=== PATIENT | female | born 1995 | race Caucasian/White ===

== ENCOUNTER 2017-04-02 14:31 | Emergency (ER) | payer OTHER ==
[2017-04-02 14:49] VITALS: BP 140/82; PULSE 84; RESP 20; TEMP 98.2
--- NOTE | 2017-04-02 15:53 | ED ---
Female Urogenital HPI - General Chief complaint: Urogenital Stated complaint: Test Time Seen by Provider: 04/02/17 15:18 Source: patient, RN notes reviewed Mode of arrival: ambulatory Limitations: no limitations - History of Present Illness Initial comments: 21-year-old female presents to the ER concerned with . She states that she has missed her last menstrual cycle which should have been the last week of February. She states that she did take a home test and she did notice a faint line on the stick but wanted confirmation. She states that this time she does not have a primary care physician. She states that she is not having any abdominal pain, nausea, vomiting, diarrhea, vaginal bleeding, discharge, urinary frequency, urgency, burning. She also states that she is in a monogamous sexual relationship that they do not use protection. Last Menstrual Period: 02/25/17 - Related Data Home Medications Medication Instructions Recorded Confirmed No Known Home Medications [No 04/02/17 04/02/17 Known Home Medications] Allergies Allergy/AdvReac Type Severity Reaction Status Date / Time No Known Allergies Allergy Verified 04/02/17 14:49 Review of Systems ROS Statement: Those systems with pertinent positive or pertinent negative responses have been documented in the HPI. ROS Other: All systems not noted in ROS Statement are negative. Past Medical History Past Medical History: No Reported History History of Any Multi-Drug Resistant Organisms: None Reported Past Surgical History: No Surgical Hx Reported Past Anesthesia/Blood Transfusion Reactions: No Reported Reaction Past Psychological History: Anxiety, Bipolar, Depression Smoking Status: Never smoker Past Alcohol Use History: None Reported Past Drug Use History: None Reported - Past Family History Father Family Medical History: Diabetes Mellitus General Exam Limitations: no limitations General appearance: alert, in no apparent distress Head exam: Present: atraumatic, normocephalic Eye exam: Present: normal appearance, PERRL, EOMI Pupils: Present: normal accommodation Respiratory exam: Present: normal lung sounds bilaterally Cardiovascular Exam: Present: regular rate, normal rhythm GI/Abdominal exam: Present: soft, other (Nondistended no tenderness.) Neurological exam: Present: alert, oriented X3, CN II-XII intact, normal gait Psychiatric exam: Present: normal affect, normal mood Skin exam: Present: warm, dry, intact Course Vital Signs 04/02/17 14:46 Temperature 98.2 F Pulse Rate 84 Respiratory 20 Rate Blood Pressure 140/82 O2 Sat by Pulse 98 Oximetry Medical Decision Making - Medical Decision Making To visual field presented to the ER with a faint positive home tests she has missed her last period by approximately 10-14 days. She does state that it has been a little irregular in either direction. She was requesting a exam through the ER for her . There was extensive counseling with the patient and her partner on emergency situations, establishing primary care physician for further issues of this nature. He was discussed with her that do not recommend a blood test at this time we do recommend urine for screen since she has no other issues or complaints. The urine did come back negative this was communicated to the patient and her partner and he recommended follow with primary care this week to [facility]. Patient was agreeable with this and is to return to the ER if any worsening or new symptoms or concerns. - Lab Data Lab Results 04/02/17 Range/Units 15:27 Urine HCG, Qual Not Detected (Not Detectd) Disposition Clinical Impression: Amenorrhea Disposition: HOME SELF-CARE Condition: Good Instructions: Normal Exam (ED) Additional Instructions: To return to the ER with any new symptoms or concerns. Encouraged to establish a primary care physician for proper follow-up. Referrals: Kris Schmidt MD [STAFF PHYSICIAN] - 1-2 days Time of Disposition: 16:17
== END 2017-04-02 16:22 | disposition home or self-care (01) ==
LOC: EC 14:31
DX: N91.2 Amenorrhea, unspecified (principal); Z32.02 Encounter for pregnancy test, result negative
CPT/HCPCS: 81025; 99281

== ENCOUNTER 2017-04-26 12:03 | Emergency (ER) | payer OTHER ==
[2017-04-26 12:34] VITALS: BP 119/69; PULSE 99; RESP 18; TEMP 98.9
--- NOTE | 2017-04-26 12:41 | ED ---
URI HPI - General Chief Complaint: Upper Respiratory Infection Stated Complaint: Cough Time Seen by Provider: 04/26/17 12:33 Source: patient, RN notes reviewed, old records reviewed Mode of arrival: ambulatory Limitations: no limitations - History of Present Illness Initial Comments: This is a 21-year-old female presents emergency Department with chief complaint of cough and sore throat for the past week. Patient reports that she is coughing the point where she fell she was going to vomit. Patient denies any abdominal pain. She is a nonsmoker. Patient states that when she coughs she does have productive yellow phlegm. Patient states that she has some sinus drainage which is causing her sore throat. Denies any history of sick contacts. Denies any fever. Patient reports that she is coughs so much that she's lost her voice. Patient denies any recent fever, chills, shortness of breath, chest pain, back pain, abdominal pain, nausea vomiting, numbness or tingling, dysuria or hematuria, constipation or diarrhea, headaches or visual changes, or any other current symptoms - Related Data Previous Rx's Medication Instructions Recorded Azithromycin [Zithromax Z-pack] 250 mg PO DIRECTED #6 tab 04/26/17 Benzonatate [Tessalon Perles] 100 mg PO TID PRN #15 capsule 04/26/17 methylPREDNISolone Dose Pack 4 mg PO DIRECTED #21 package 04/26/17 [Medrol Dose Pack] Allergies Allergy/AdvReac Type Severity Reaction Status Date / Time No Known Allergies Allergy Verified 04/26/17 12:33 Review of Systems ROS Statement: Those systems with pertinent positive or pertinent negative responses have been documented in the HPI. ROS Other: All systems not noted in ROS Statement are negative. Past Medical History Past Medical History: No Reported History History of Any Multi-Drug Resistant Organisms: None Reported Past Surgical History: No Surgical Hx Reported Past Anesthesia/Blood Transfusion Reactions: No Reported Reaction Past Psychological History: Anxiety, Bipolar, Depression Smoking Status: Never smoker Past Alcohol Use History: None Reported Past Drug Use History: None Reported - Past Family History Father Family Medical History: Diabetes Mellitus General Exam - General Exam Comments Initial Comments: 19-year-old female. No acute distress. Limitations: no limitations General appearance: alert, in no apparent distress Head exam: Present: atraumatic, normocephalic, normal inspection Eye exam: Present: normal appearance, PERRL, EOMI. Absent: scleral icterus, conjunctival injection, periorbital swelling ENT exam: Present: normal exam, normal oropharynx, mucous membranes moist, other (Patient has a hoarse voice.) Neck exam: Present: normal inspection. Absent: tenderness, meningismus, lymphadenopathy Respiratory exam: Present: normal lung sounds bilaterally. Absent: respiratory distress, wheezes, rales, rhonchi, stridor Cardiovascular Exam: Present: regular rate, normal rhythm, normal heart sounds. Absent: systolic murmur, diastolic murmur, rubs, gallop, clicks GI/Abdominal exam: Present: soft, normal bowel sounds. Absent: distended, tenderness, guarding, rebound, rigid Extremities exam: Present: normal inspection, full ROM, normal capillary refill. Absent: tenderness, pedal edema, joint swelling, calf tenderness Back exam: Present: normal inspection Neurological exam: Present: alert, oriented X3, CN II-XII intact Psychiatric exam: Present: normal affect, normal mood Skin exam: Present: warm, dry, intact, normal color. Absent: rash Course Vital Signs 04/26/17 12:31 Temperature 98.9 F Pulse Rate 99 Respiratory 18 Rate Blood Pressure 119/69 O2 Sat by Pulse 99 Oximetry Medical Decision Making - Medical Decision Making This is a 21-year-old female presenting to emergency Department chief complaint of cough and sore throat and lost her voice for the past week. Patient will be given a chest x-ray. Chest x-ray is negative for any acute process. Patient will be started on a steroid Dosepak and azithromycin for this cough and sore throat. Patient will be advised to follow-up with primary care provider if symptoms continue persist. Discussed with the patient to rest, increase fluids. Patient understands treatment plan and they will comply. Return parameters were discussed. - Radiology Data Radiology results: report reviewed Chest x-ray here for any acute process. No skin change from prior. Disposition Clinical Impression: Bronchitis Disposition: HOME SELF-CARE Condition: Good Instructions: Upper Respiratory Infection (ED) Additional Instructions: Patient is to rest, increase fluids. Complete the prescriptions as directed. Follow with her primary care provider if symptoms continue to persist. Patient advised to remain home from work for the next 48 hours. Return to the emergency department if any alarming signs or symptoms occur. Prescriptions: Azithromycin [Zithromax Z-pack] 250 mg PO DIRECTED #6 tab Benzonatate [Tessalon Perles] 100 mg PO TID PRN #15 capsule PRN Reason: Cough methylPREDNISolone Dose Pack [Medrol Dose Pack] 4 mg PO DIRECTED #21 package Referrals: Kathleen Padilla MD [STAFF PHYSICIAN] - 1-2 days Time of Disposition: 13:02
--- NOTE | 2017-04-26 12:57 | XR ---
EXAMINATION TYPE: XR chest 2V DATE OF EXAM: 04/26/2017 COMPARISON: Chest x-ray May 07, 2015. HISTORY: Cough and nasal congestion for one week per patient. Chest pain per order. TECHNIQUE: Frontal and lateral views of the chest are obtained. FINDINGS: There is no focal air space opacity, pleural effusion, or pneumothorax seen. The cardiac silhouette size is within normal limits. The osseous structures are intact. IMPRESSION: No acute pulmonary process. No significant change from prior.
== END 2017-04-26 13:23 | disposition home or self-care (01) ==
LOC: EC 12:03
DX: J40 Bronchitis, not specified as acute or chronic (principal); R11.10 Vomiting, unspecified
CPT/HCPCS: 71020; 99284